=== PATIENT | female | born 1945 | race Caucasian/White ===

== ENCOUNTER 2017-08-19 13:59 | Observation (INO) | payer MEDICARE ==
[2017-08-19] MEDS ORDERED: ASPIRIN 81 MG PO STA (14:31)
[2017-08-19] MEDS ORDERED: NITROGLYCERIN OINT 1 INCH/GM PACKET TOPICAL STA (14:31)
--- NOTE | 2017-08-19 14:34 | ED ---
General Adult HPI - General Chief complaint: Chest Pain Stated complaint: chest & back pain Time Seen by Provider: 08/19/17 14:00 Source: patient, RN notes reviewed Mode of arrival: wheelchair Limitations: no limitations - History of Present Illness Initial comments: 72-year-old female who presents to the emergency department with a past medical history significant for diabetes high blood pressure and high cholesterol. Patient states she quit smoking a couple decades ago. Patient comes in today because she started having chest pain which radiated across her back. Patient states she was also short of breath. Patient states she was just sitting down having lunch when this occurred. Patient states she still feels mildly short of breath with the back pain continuing. Patient denies any diaphoresis. Patient denies any nausea vomiting per patient denies any abdominal pain. Patient denies any previous heart history. Patient denies any lightheadedness dizziness or near syncopal episode. Patient denies headache patient denies numbness weakness. Patient denies any recent fever chills or cough. Patient denies any leg swelling or calf pain. Patient denies any recent new activity such as any heavy lifting moving or exercising. Patient states it does seem to hurt more when she moves on occasion but in other instances it does not affect. - Related Data Home Medications Medication Instructions Recorded Confirmed Atorvastatin [Lipitor] 10 mg PO DAILY 08/19/17 08/19/17 Cholecalciferol [Vitamin D3] 1,000 unit PO DAILY 08/19/17 08/19/17 Cyanocobalamin (Vitamin B-12) 5,000 mcg PO DAILY 08/19/17 08/19/17 [Vitamin B12] DULoxetine HCL [Cymbalta] 30 mg PO DAILY 08/19/17 08/19/17 Divalproex Sodium [Depakote] 125 mg PO BID 08/19/17 08/19/17 Donepezil [Aricept] 10 mg PO HS 08/19/17 08/19/17 Lisinopril [Zestril] 10 mg PO DAILY 08/19/17 08/19/17 Magnesium Oxide [Mag-Ox] 400 mg PO BID 08/19/17 08/19/17 Metoprolol Succinate (ER) [Toprol 100 mg PO DAILY 08/19/17 08/19/17 Xl] NIFEdipine [NIFEdipine ER] 30 mg PO DAILY 08/19/17 08/19/17 Propranolol [Inderal] 20 mg PO BID 08/19/17 08/19/17 Spironolactone [Aldactone] 25 mg PO DAILY 08/19/17 08/19/17 metFORMIN HCL [Glucophage] 500 mg PO DAILY 08/19/17 08/19/17 Allergies Allergy/AdvReac Type Severity Reaction Status Date / Time bee venom protein (honey bee) Allergy Swelling Verified 08/19/17 14:16 iodine Allergy Rash/Hives Verified 08/19/17 14:16 Review of Systems ROS Statement: Those systems with pertinent positive or pertinent negative responses have been documented in the HPI. ROS Other: All systems not noted in ROS Statement are negative. Past Medical History Past Medical History: Dementia, Diabetes Mellitus History of Any Multi-Drug Resistant Organisms: None Reported Past Surgical History: Hysterectomy, Orthopedic Surgery Additional Past Surgical History / Comment(s): left ankle surgery Past Psychological History: No Psychological Hx Reported Smoking Status: Former smoker Past Alcohol Use History: Occasional Past Drug Use History: None Reported General Exam - General Exam Comments Initial Comments: GENERAL: Patient is well-developed and well-nourished. Patient is nontoxic and well- hydrated and is in mild distress. ENT: Neck is soft and supple. No significant lymphadenopathy is noted. Oropharynx is clear. Moist mucous membranes. Neck has full range of motion without eliciting any pain. EYES: The sclera were anicteric and conjunctiva were pink and moist. Extraocular movements were intact and pupils were equal round and reactive to light. Eyelids were unremarkable. PULMONARY: Unlabored respirations. Good breath sounds bilaterally. No audible rales rhonchi or wheezing was noted. CARDIOVASCULAR: There is a regular rate and rhythm without any murmurs gallops or rubs. ABDOMEN: Soft and nontender with normal bowel sounds. No palpable organomegaly was noted. There is no palpable pulsatile mass. SKIN: Skin is clear with no lesions or rashes and otherwise unremarkable. NEUROLOGIC: Patient is alert and oriented x3. Cranial nerves II through XII are grossly intact. Motor and sensory are also intact. Normal speech, volume and content. Symmetrical smile. MUSCULOSKELETAL: Normal extremities with adequate strength and full range of motion. No lower extremity swelling or edema. No calf tenderness. LYMPHATICS: No significant lymphadenopathy is noted PSYCHIATRIC: Normal psychiatric evaluation. Normal interpersonal interactions appears functionally intact in deals appropriately with others. No signs of depression. No signs of anxiety. Limitations: no limitations Course Vital Signs 08/19/17 08/19/17 14:00 15:49 Temperature 97.6 F Pulse Rate 51 L 53 L Respiratory 18 18 Rate Blood Pressure 143/61 143/70 O2 Sat by Pulse 98 98 Oximetry Medical Decision Making - Medical Decision Making EKG shows sinus bradycardia 52 bpm [place] interval 224 QRS is 84 Q-T intervals 452 QTC is 420. Patient's EKG shows no acute abnormality. Chest x-ray shows no acute abnormality. Patient was chest pain-free so I started the patient on heparin because the unstable angina I admitted the patient I talked to Dr. Nathan I wrote admitting orders and continue the heparin and aspirin and Nitropaste on the floor - Lab Data Result diagrams: 08/19/17 14:22 08/19/17 14:22 Lab Results 08/19/17 08/19/17 08/19/17 Range/Units 14:22 14:22 14:22 WBC 7.4 (3.8-10.6) k/uL RBC 4.27 (3.80-5.40) m/uL Hgb 14.1 (11.4-16.0) gm/dL Hct 40.1 (34.0-46.0) % MCV 93.9 (80.0-100.0) fL MCH 33.0 (25.0-35.0) pg MCHC 35.2 (31.0-37.0) g/dL RDW 13.1 (11.5-15.5) % Plt Count 316 (150-450) k/uL Neutrophils % 61 % Lymphocytes % 29 % Monocytes % 5 % Eosinophils % 2 % Basophils % 1 % Neutrophils # 4.5 (1.3-7.7) k/uL Lymphocytes # 2.2 (1.0-4.8) k/uL Monocytes # 0.4 (0-1.0) k/uL Eosinophils # 0.2 (0-0.7) k/uL Basophils # 0.1 (0-0.2) k/uL PT (9.0-12.0) sec INR (<1.2) APTT (22.0-30.0) sec Sodium 138 (137-145) mmol/L Potassium 4.2 (3.5-5.1) mmol/L Chloride 96 L (98-107) mmol/L Carbon Dioxide 27 (22-30) mmol/L Anion Gap 15 mmol/L BUN 11 (7-17) mg/dL Creatinine 0.66 (0.52-1.04) mg/dL Est GFR (CKD-EPI)AfAm >90 (>60 ml/min/1.73 sqM) Est GFR (CKD-EPI)NonAf 89 (>60 ml/min/1.73 sqM) Glucose 231 H (74-99) mg/dL Calcium 9.6 (8.4-10.2) mg/dL Magnesium 1.7 (1.6-2.3) mg/dL Total Bilirubin 0.8 (0.2-1.3) mg/dL AST 27 (14-36) U/L ALT 35 (9-52) U/L Alkaline Phosphatase 72 (38-126) U/L Total Creatine Kinase 34 (30-135) U/L CK-MB (CK-2) 0.9 (0.0-2.4) ng/mL CK-MB (CK-2) Rel Index 2.6 Troponin I <0.012 (0.000-0.034) ng/mL Total Protein 6.6 (6.3-8.2) g/dL Albumin 4.2 (3.5-5.0) g/dL 08/19/17 Range/Units 14:22 WBC (3.8-10.6) k/uL RBC (3.80-5.40) m/uL Hgb (11.4-16.0) gm/dL Hct (34.0-46.0) % MCV (80.0-100.0) fL MCH (25.0-35.0) pg MCHC (31.0-37.0) g/dL RDW (11.5-15.5) % Plt Count (150-450) k/uL Neutrophils % % Lymphocytes % % Monocytes % % Eosinophils % % Basophils % % Neutrophils # (1.3-7.7) k/uL Lymphocytes # (1.0-4.8) k/uL Monocytes # (0-1.0) k/uL Eosinophils # (0-0.7) k/uL Basophils # (0-0.2) k/uL PT 10.2 (9.0-12.0) sec INR 1.0 (<1.2) APTT 23.0 (22.0-30.0) sec Sodium (137-145) mmol/L Potassium (3.5-5.1) mmol/L Chloride (98-107) mmol/L Carbon Dioxide (22-30) mmol/L Anion Gap mmol/L BUN (7-17) mg/dL Creatinine (0.52-1.04) mg/dL Est GFR (CKD-EPI)AfAm (>60 ml/min/1.73 sqM) Est GFR (CKD-EPI)NonAf (>60 ml/min/1.73 sqM) Glucose (74-99) mg/dL Calcium (8.4-10.2) mg/dL Magnesium (1.6-2.3) mg/dL Total Bilirubin (0.2-1.3) mg/dL AST (14-36) U/L ALT (9-52) U/L Alkaline Phosphatase (38-126) U/L Total Creatine Kinase (30-135) U/L CK-MB (CK-2) (0.0-2.4) ng/mL CK-MB (CK-2) Rel Index Troponin I (0.000-0.034) ng/mL Total Protein (6.3-8.2) g/dL Albumin (3.5-5.0) g/dL Critical Care Time Critical Care Time: Yes Total Critical Care Time: 35 Disposition Clinical Impression: Unstable angina pectoris Disposition: ADMITTED IP TO THIS [facility] Referrals: Kianna Mchugh MD [Primary Care Provider] - 1-2 days Time of Disposition: 16:30
[2017-08-19 15:30] LABS: Basophils # (A) 0.1 k/uL (0-0.2); Basophils % (A) 1 %; Eosinophils # (A) 0.2 k/uL (0-0.7); Eosinophils % (A) 2 %; HCT 40.1 % (34.0-46.0); HGB 14.1 gm/dL (11.4-16.0); Lymphocytes # (A) 2.2 k/uL (1.0-4.8); Lymphocytes % (A) 29 %; MCHC 35.2 g/dL (31.0-37.0); MCV 93.9 fL (80.0-100.0); Mean Platelet Volume 7.1; Monocytes # (A) 0.4 k/uL (0-1.0); Monocytes % (A) 5 %; Neutrophils # (A) 4.5 k/uL (1.3-7.7); Neutrophils % (A) 61 %; Platelet Count 316 k/uL (150-450); RBC 4.27 m/uL (3.80-5.40); RDW 13.1 % (11.5-15.5); WBC 7.4 k/uL (3.8-10.6)
--- NOTE | 2017-08-19 15:34 | XR ---
EXAMINATION TYPE: XR chest 2V DATE OF EXAM: 08/19/2017 COMPARISON: NONE HISTORY: Chest pain TECHNIQUE: Frontal and lateral views of the chest are obtained. FINDINGS: Patient is rotated. There is no focal air space opacity, pleural effusion, or pneumothorax seen. The cardiac silhouette size is within normal limits. The osseous structures are intact. The re are overlying cardiac leads. Arthropathy noted at the acromioclavicular joints. IMPRESSION: No acute cardiopulmonary process.
[2017-08-19 15:38] LABS: ALT 35 U/L (9-52); AST 27 U/L (14-36); Albumin 4.2 g/dL (3.5-5.0); Alkaline Phosphatase 72 U/L (38-126); Anion Gap 15 mmol/L; Blood Urea Nitrogen 11 mg/dL (7-17); Calcium 9.6 mg/dL (8.4-10.2); Carbon Dioxide 27 mmol/L (22-30); Chloride 96 mmol/L (98-107); Glucose 231 mg/dL (74-99); Magnesium 1.7 mg/dL (1.6-2.3); Potassium 4.2 mmol/L (3.5-5.1); Prothrombin Time 10.2 sec (9.0-12.0); Sodium 138 mmol/L (137-145); Total Bilirubin 0.8 mg/dL (0.2-1.3); Total Protein 6.6 g/dL (6.3-8.2)
[2017-08-19 15:52] LABS: Creatine Kinase 34 U/L (30-135)
[2017-08-19 16:04] LABS: Creatine Kinase MB 0.9 ng/mL (0.0-2.4); Troponin I <0.012 ng/mL (0.000-0.034)
[2017-08-19] MEDS ORDERED: HEPARIN SODIUM,PORCINE 5,000 UNIT/ML 1 ML VIAL IV ONE (16:27)
[2017-08-19] MEDS ORDERED: HEPARIN SOD,PORK IN 0.45% NACL 25,000 UNIT in 0.45% NACL 1 500ML.BAG IV SCH (16:30)
[2017-08-19] MEDS ORDERED: NITROGLYCERIN SL TABS 0.4 MG TAB SUBLINGUAL PRN (16:31)
[2017-08-19] MEDS ORDERED: MORPHINE SULFATE 2 MG/ML SYRINGE IVP STA (16:57)
[2017-08-19] MEDS ORDERED: HYDROcodone/APAP 5-325MG 1 EACH TAB PO PRN (18:18)
[2017-08-19] MEDS ORDERED: NALOXONE 0.4 MG/ML 1 ML VIAL IV PRN (18:18)
[2017-08-19] MEDS ORDERED: ACETAMINOPHEN TAB 325 MG TAB PO PRN (18:18)
[2017-08-19] MEDS ORDERED: MORPHINE SULFATE 2 MG/ML SYRINGE IV PRN (18:18)
--- NOTE | 2017-08-19 18:30 | P.HPIM ---
History of Present Illness H&P Date: 08/19/17 Chief Complaint: Chest pain 72-year-old female with history of diabetes, hypertension and hyperlipidemia who presents to the emergency department with chest pain located on the left side of the chest. Pain feels like a pressure sensation. It is associated with shortness of breath. Patient states she was just sitting down having lunch when this occurred. When I saw her she continued to have chest pain despite having a Nitro patch on. She never had this type of pain in the past. No diaphoresis, dizziness, nausea, vomiting, no abdominal pain. Patient denies any previous heart history. No numbness or weakness. Patient denies any recent fever chills or cough. Patient denies any leg swelling or calf pain. Patient denies any recent new activity such as any heavy lifting moving or exercising. Review of Systems 12 point review of system performed, negative except HPI Past Medical History Past Medical History: Dementia, Diabetes Mellitus, Hyperlipidemia, Hypertension Additional Past Medical History / Comment(s): "headaches" History of Any Multi-Drug Resistant Organisms: None Reported Past Surgical History: Cholecystectomy, Hysterectomy, Orthopedic Surgery, Tonsillectomy Additional Past Surgical History / Comment(s): left ankle surgery, colonoscopy Past Anesthesia/Blood Transfusion Reactions: No Reported Reaction Smoking Status: Former smoker - Past Family History Mother History Unknown: Yes Father Family Medical History: Myocardial Infarction ([place]) Medications and Allergies Home Medications Medication Instructions Recorded Confirmed Type Atorvastatin [Lipitor] 10 mg PO DAILY 08/19/17 08/19/17 History Cholecalciferol [Vitamin D3] 1,000 unit PO DAILY 08/19/17 08/19/17 History Cyanocobalamin (Vitamin B-12) 5,000 mcg PO DAILY 08/19/17 08/19/17 History [Vitamin B12] DULoxetine HCL [Cymbalta] 30 mg PO DAILY 08/19/17 08/19/17 History Divalproex Sodium [Depakote] 125 mg PO BID 08/19/17 08/19/17 History Donepezil [Aricept] 10 mg PO HS 08/19/17 08/19/17 History Lisinopril [Zestril] 10 mg PO DAILY 08/19/17 08/19/17 History Magnesium Oxide [Mag-Ox] 400 mg PO BID 08/19/17 08/19/17 History Metoprolol Succinate (ER) [Toprol 100 mg PO DAILY 08/19/17 08/19/17 History Xl] NIFEdipine [NIFEdipine ER] 30 mg PO DAILY 08/19/17 08/19/17 History Propranolol [Inderal] 20 mg PO BID 08/19/17 08/19/17 History Spironolactone [Aldactone] 25 mg PO DAILY 08/19/17 08/19/17 History metFORMIN HCL [Glucophage] 500 mg PO DAILY 08/19/17 08/19/17 History Allergies Allergy/AdvReac Type Severity Reaction Status Date / Time bee venom protein (honey bee) Allergy Swelling Verified 08/19/17 14:16 iodine Allergy Rash/Hives Verified 08/19/17 14:16 Physical Exam Vitals: Vital Signs Temp Pulse Resp BP Pulse Ox 08/19/17 17:00 59 L 18 120/66 99 08/19/17 15:49 53 L 18 143/70 98 08/19/17 14:00 97.6 F 51 L 18 143/61 98 Intake and Output 08/19/17 08/19/17 08/19/17 06:59 14:59 22:59 Other: Weight 66.224 kg Constitutional: No acute distress, conversant, pleasant Eyes:Anicteric sclerae, moist conjunctiva, no lid-lag, PERRLA, ENMT: Oropharynx clear, no erythema, exudates Neck: Supple, FROM, no masses, or JVD, No carotid bruits, No thyromegaly Lungs: Clear to auscultation, Clear to percussion, Normal respiratory effort, no accessory muscle use Cardiovascular: Heart regular in rate and rhythm, No murmurs, gallops, or rubs, No peripheral edema Abdominal: Soft, Nontender, no guarding, rebound or rigidity, Normoactive bowel sounds, No hepatomegaly, No splenomegaly, No palpable mass Skin: Normal temperature, tone, texture, turgor, no induration, No subcutaneous nodules, No rash, lesions, No ulcers Extremities: No digital cyanosis, No clubbing, Pedal pulses intact and symmetrical, Radial pulses intact and symmetrical, No calf tenderness Psychiatric: Alert and oriented to person, place and time, appropriate affect, intact judgement Neuro: Muscles Strength 5/5 in all 4 extremities, Sensation to light touch grossly present throughout, Cranial nerves II-XII grossly intact, no focal sensory deficits Results CBC & Chem 7: 08/19/17 14:22 08/19/17 14:22 Labs: Abnormal Lab Results - Last 24 Hours (Table) 08/19/17 Range/Units 14:22 Chloride 96 L (98-107) mmol/L Glucose 231 H (74-99) mg/dL Assessment and Plan Plan: Chest pain Could be secondary to unstable angina Admit to observation Telemetry Cycle troponins, check lipid panel Heparin drip, aspirin Cardiology consult Echocardiogram Stress test, hold beta cayden for now Diabetes type 2 Hold metformin Sliding scale insulin with blood sugar checks every before meals and at bedtime Check HbA1c Hypertension, essential/hyperlipidemia Stable Resume home meds Anticipated length of stay: 1-2 days Disposition: Likely home
[2017-08-19] MEDS: NITROGLYCERIN OINT 1 INCH/GM PACKET TOPICAL SCH (18:57)
[2017-08-19] MEDS ORDERED: DONEPEZIL 10 MG TAB PO SCH (21:00)
[2017-08-19] MEDS ORDERED: PROPRANOLOL 20 MG TAB PO SCH (21:00)
[2017-08-19 21:19] LABS: Glucose,Whole Blood 164 mg/dL (75-99)
[2017-08-19 21:43] LABS: Creatine Kinase 30 U/L (30-135)
[2017-08-19 21:56] LABS: Troponin I <0.012 ng/mL (0.000-0.034)
[2017-08-19] MEDS: INSULIN ASPART 100 UNIT/ML 1 ML 10 ML VIAL SQ SCH (22:42)
[2017-08-19] MEDS: MAGNESIUM OXIDE 400 MG TAB PO SCH (22:43)
[2017-08-19] MEDS: DIVALPROEX SPRINKLE 125 MG CAP.SPRINK PO SCH (22:43)
[2017-08-19 23:47] VITALS: RESP 18
[2017-08-20] MEDS: NITROGLYCERIN OINT 1 INCH/GM PACKET TOPICAL SCH ×3 (00:49→13:03)
[2017-08-20 01:53] LABS: Creatine Kinase 30 U/L (30-135)
[2017-08-20 02:07] LABS: Creatine Kinase MB 0.9 ng/mL (0.0-2.4); Troponin I <0.012 ng/mL (0.000-0.034)
[2017-08-20] MEDS ORDERED: AMINOPHYLLINE 500 MG/20 ML VIAL IV PRN (05:00)
[2017-08-20] MEDS ORDERED: REGADENOSON 0.4 MG/5 ML SYRINGE IV ONE (05:00)
[2017-08-20 06:59] LABS: Glucose,Whole Blood 167 mg/dL (75-99)
--- NOTE | 2017-08-20 07:33 | CONS ---
CONSULTATION Joanna Marquis is a patient who has most of her health care in the [facility]. The patient and her live in [place], [place]. Her brought the patient in because apparently while they were having lunch yesterday she complained of some pressure across the chest. The patient has dementia and short-term memory, but she looked uncomfortable and complained of discomfort in the chest, had some diaphoresis and brought her into the hospital. After arrival, she did not have any discomfort. She complained of some upper back discomfort, which seems to have improved. Her troponins are normal. Three 3 sets of troponins are unremarkable and I was able to get this information from the lab, although there is no printed report. The patient has history of type 2 diabetes, hypertension, takes oral agents. She is comfortable at the time of my evaluation and indicates to me there is some upper back discomfort, but feels a lot better. Pain seems musculoskeletal. She is resting comfortably without symptoms. PAST MEDICAL HISTORY: 1. Type 2 diabetes. 2. Hypertension. 3. Dementia. 4. Status post cholecystectomy and hysterectomy. PHYSICAL EXAMINATION: On examination, blood pressure is 130/70, pulse rate is about 68 per minute and regular. HEENT: Unremarkable. Fundus was not examined by me. Neck is supple. There is no JVD. I do not hear a carotid bruit. There is no thyromegaly. Heart exam reveals S1, S2 heard normally. There is a short systolic murmur at the base, which is a very low intensity murmur. Lungs are clear. Abdomen is soft, nontender. Lower extremities reveal palpable pulses. No edema. Central nervous system is normal. EKG revealed sinus mechanism with evidence of nondiagnostic inferior Q-waves and nonspecific ST-T changes. LABORATORY DATA: Laboratory data suggests the 3 sets of troponins are normal. Her hemoglobin, white count and platelet count are normal. Renal function is also within normal limits. Three sets of troponins are unremarkable. IMPRESSION: 1. Chest pain syndrome cannot exclude angina in a patient with significant risk factors. Three sets of troponins are normal. 2. Type 2 diabetes. 3. Hypertension. 4. Dementia. 5. Status post cholecystectomy, hysterectomy, and ankle surgery. RECOMMENDATIONS: I am recommending a Lexiscan stress test and echocardiogram. Based on these findings, we will make further recommendations. Thank you very much for the consult. MMODL / IJN: [id number] /
[2017-08-20 08:34] LABS: Basophils % (A) 0 %; Eosinophils # (A) 0.2 k/uL (0-0.7); Eosinophils % (A) 3 %; HCT 36.5 % (34.0-46.0); HGB 12.7 gm/dL (11.4-16.0); Lymphocytes # (A) 2.4 k/uL (1.0-4.8); Lymphocytes % (A) 32 %; MCH 32.2 pg (25.0-35.0); MCHC 34.8 g/dL (31.0-37.0); MCV 92.7 fL (80.0-100.0); Mean Platelet Volume 7.3; Monocytes # (A) 0.5 k/uL (0-1.0); Monocytes % (A) 6 %; Neutrophils # (A) 4.4 k/uL (1.3-7.7); Neutrophils % (A) 57 %; Platelet Count 275 k/uL (150-450); RBC 3.93 m/uL (3.80-5.40); RDW 12.6 % (11.5-15.5); WBC 7.7 k/uL (3.8-10.6)
[2017-08-20] MEDS ORDERED: CHOLECALCIFEROL 1,000 UNIT TAB PO SCH (09:00)
[2017-08-20] MEDS ORDERED: ATORVASTATIN 10 MG TAB PO SCH (09:00)
[2017-08-20] MEDS ORDERED: LISINOPRIL 10 MG TAB PO SCH (09:00)
[2017-08-20] MEDS ORDERED: DULoxetine HCL 30 MG CAPSULE.DR PO SCH (09:00)
[2017-08-20] MEDS ORDERED: NIFEdipine XL 30 MG TAB.ER.24 PO SCH (09:00)
[2017-08-20] MEDS ORDERED: ASPIRIN 325 MG TAB PO SCH (09:00)
[2017-08-20] MEDS ORDERED: SPIRONOLACTONE 25 MG TAB PO SCH (09:00)
[2017-08-20 09:14] LABS: Anion Gap 14 mmol/L; Calcium 8.6 mg/dL (8.4-10.2); Carbon Dioxide 25 mmol/L (22-30); Chloride 101 mmol/L (98-107); Cholesterol 140 mg/dL (<200); Glucose 129 mg/dL (74-99); HDL Cholesterol 40 mg/dL (40-60); LDL Cholesterol,Calculated 25 mg/dL (0-99); Sodium 140 mmol/L (137-145); Triglycerides 377 mg/dL (<150)
[2017-08-20] MEDS: DIVALPROEX SPRINKLE 125 MG CAP.SPRINK PO SCH (10:51)
[2017-08-20] MEDS: INSULIN ASPART 100 UNIT/ML 1 ML 10 ML VIAL SQ SCH ×2 (10:51→13:04)
[2017-08-20] MEDS: MAGNESIUM OXIDE 400 MG TAB PO SCH (10:52)
--- NOTE | 2017-08-20 11:05 | ECHOF ---
Referral Reason:CP MEASUREMENTS -------- HEIGHT: 162.6 cm WEIGHT: 66.2 kg BP: RVIDd: 2.5 cm (< 3.3) IVSd: 0.9 cm (0.6 - 1.1) LVIDd: 4.4 cm (3.9 - 5.3) LVPWd: 1.1 cm (0.6 - 1.1) IVSs: 1.4 cm LVIDs: 3.1 cm LVPWs: 1.2 cm LA Diam: 3.2 cm (2.7 - 3.8) LAESV Index (A-L): 21.59 ml/m Ao Diam: 2.5 cm (2.0 - 3.7) AV Cusp: 1.7 cm (1.5 - 2.6) LA Diam: 3.8 cm (2.7 - 3.8) MV EXCURSION: 17.354 mm (> 18.000) MV EF SLOPE: 115 mm/s (70 - 150) EPSS: 0.3 cm MV E Law: 0.59 m/s MV DecT: 270 ms MV A Law: 0.84 m/s MV E/A Ratio: 0.70 AR PHT: 749 ms RAP: 5.00 mmHg RVSP: 22.61 mmHg FINDINGS -------- Sinus rhythm. This was a technically adequate study. The left ventricular size is normal. There is borderline concentric left ventricular hypertrophy. Overall left ventricular systolic function is normal with, an EF between 55 - 60 %. The right ventricle is normal in size. The left atrial size is normal. The right atrial size is normal. There is mild aortic regurgitation. Mild mitral annular calcification present. Mild mitral regurgitation is present. Mild tricuspid regurgitation present. There is no evidence of pulmonary hypertension. The right v entricular systolic pressure, as measured by Doppler, is 22.61mmHg. There is no pulmonic regurgitation present. The aortic root size is normal. There is no pericardial effusion. CONCLUSIONS -------- 1. The left ventricular size is normal. 2. There is borderline concentric left ventricular hypertrophy. 3. The right ventricle is normal in size. 4. The left atrial size is normal. 5. The right atrial size is normal. 6. There is mild aortic regurgitation. 7. Mild mitral annular calcification present. 8. Mild mitral regurgitation is present. 9. Mild tricuspid regurgitation present. 10. There is no evidence of pulmonary hypertension. 11. The right ventricular systolic pressure, as measured by Doppler, is 22.61mmHg. 12. There is no pulmonic regurgitation present. 13. The aortic root size is normal. 14. There is no pericardial effusion. [employer] FIELD COACH: Jessica Thomason RDCS
[2017-08-20 11:37] VITALS: BP 132/58; PULSE 54; TEMP 98.6
--- NOTE | 2017-08-20 11:51 | EST ---
EXERCISE STRESS AGE: 72 SEX: F HT: 63" WT: 146 PROTOCOL: Lexiscan Cardiolite Stress Test HEART RATE REST: 56 BLOOD PRESSURE REST: 123/62 MAXIMUM HEART RATE ACHIEVED: 67 MAXIMUM BLOOD PRESSURE: 124/68 INDICATIONS: Chest pain. CLINICAL INFORMATION: Baseline EKG revealed normal sinus rhythm without significant ST-T changes. There were minor nonspecific changes. Patient was administered Lexiscan as per protocol and heart rate changed from 56 to 67 beats per minute and blood pressure changed from 123/62 to 124/68. EKG did not reveal any significant ST-segment changes to indicate ischemia. Nonspecific changes that were seen to begin with persisted. By EKG criteria, this is considered as a inconclusive stress test because of minor resting EKG changes to begin with. These changes became more prominent in the inferolateral leads, but these are still considered as inconclusive findings. The patient did not have any clear-cut angina but complained of some upper back discomfort. By EKG criteria, this is an inconclusive Lexiscan stress test because of minor resting EKG changes. The nuclear scan results which are more pertinent, will be reported by the radiologist. MMODL / IJN: [id number] /
--- NOTE | 2017-08-20 12:14 | NM ---
EXAMINATION TYPE: NM stress lexiscan cardiolite DATE OF EXAM: 08/20/2017 COMPARISON: NONE HISTORY: Chest pain TECHNIQUE: After the intravenous administration of 10.3 mCi Tc 99m Sestamibi - Cardiolite resting SP ECT images acquired 60 minutes post injection. The patient received 0.4mg Lexiscan, 26.8 mCi Tc 99m Sestamibi - Stress images obtained [address] injection FINDINGS: Review of stress and rest SPECT images demonstrates no distinct perfusion abnormality. Gut activity is noted. Gated analysis shows questionable apical paradoxical wall motion with an estimated left chriss tricular ejection fraction of 61 %. IMPRESSION: No scintigraphic evidence for reversible ischemia. Consider correlation with echocardiographic study.
[2017-08-20 12:26] LABS: Glucose,Whole Blood 171 mg/dL (75-99)
[2017-08-20 14:48] LABS: Blood Urea Nitrogen 14 mg/dL (7-17)
[2017-08-20 14:49] LABS: Magnesium 1.6 mg/dL (1.6-2.3); Phosphorus 4.3 mg/dL (2.5-4.5)
--- NOTE | 2017-08-20 15:59 | P.DS ---
Providers Date of admission: 08/19/17 16:39 Expected date of discharge: 08/20/17 Attending physician: Viky Owen MD Consults: 08/19/17 16:31 Consult Physician Urgent Consulting Provider: [facility] Consult Reason/Comments: Unstable angina Do you want consulting provider notified?: Yes Primary care physician: [facility] Course: 72-year-old female with history of diabetes, hypertension and hyperlipidemia who presents to the emergency department with chest pain located on the left side of the chest. Pain feels like a pressure sensation. It is associated with shortness of breath. Patient states she was just sitting down having lunch when this occurred. When I saw her she continued to have chest pain despite having a Nitro patch on. She never had this type of pain in the past. No diaphoresis, dizziness, nausea, vomiting, no abdominal pain. Patient denies any previous heart history. No numbness or weakness. Patient denies any recent fever chills or cough. Patient denies any leg swelling or calf pain. Patient denies any recent new activity such as any heavy lifting moving or exercising. In the emergency department patient was hemodynamically stable. Because of persistent chest pain she was started on heparin and admitted subsequently to the hospital for further evaluation and management. EKG on admission was done and that was negative for any acute process. Troponins were cycled and they stayed within normal limits. The next day patient had an echocardiogram which showed a normal EF and no significant valvular abnormalities, she also had a Lexiscan that was negative for ischemia. Currently chest pain is resolved. Patient will be discharged home in a stable condition. Discharged diagnoses: Atypical chest pain, no cad. Plan - Discharge Summary Discharge Rx Participant: No New Discharge Prescriptions: Continue Propranolol [Inderal] 20 mg PO BID Magnesium Oxide [Mag-Ox] 400 mg PO BID Donepezil [Aricept] 10 mg PO HS Divalproex Sodium [Depakote] 125 mg PO BID metFORMIN HCL [Glucophage] 500 mg PO DAILY Spironolactone [Aldactone] 25 mg PO DAILY NIFEdipine [NIFEdipine ER] 30 mg PO DAILY Metoprolol Succinate (ER) [Toprol XL] 100 mg PO DAILY Cyanocobalamin (Vitamin B-12) [Vitamin B12] 5,000 mcg PO DAILY Cholecalciferol [Vitamin D3] 1,000 unit PO DAILY Lisinopril [Zestril] 10 mg PO DAILY DULoxetine HCL [Cymbalta] 30 mg PO DAILY Atorvastatin [Lipitor] 10 mg PO DAILY Discharge Medication List Atorvastatin [Lipitor] 10 mg PO DAILY 08/19/17 [History] Cholecalciferol [Vitamin D3] 1,000 unit PO DAILY 08/19/17 [History] Cyanocobalamin (Vitamin B-12) [Vitamin B12] 5,000 mcg PO DAILY 08/19/17 [History ] DULoxetine HCL [Cymbalta] 30 mg PO DAILY 08/19/17 [History] Divalproex Sodium [Depakote] 125 mg PO BID 08/19/17 [History] Donepezil [Aricept] 10 mg PO HS 08/19/17 [History] Lisinopril [Zestril] 10 mg PO DAILY 08/19/17 [History] Magnesium Oxide [Mag-Ox] 400 mg PO BID 08/19/17 [History] Metoprolol Succinate (ER) [Toprol XL] 100 mg PO DAILY 08/19/17 [History] NIFEdipine [NIFEdipine ER] 30 mg PO DAILY 08/19/17 [History] Propranolol [Inderal] 20 mg PO BID 08/19/17 [History] Spironolactone [Aldactone] 25 mg PO DAILY 08/19/17 [History] metFORMIN HCL [Glucophage] 500 mg PO DAILY 08/19/17 [History] Follow up Appointment(s)/Referral(s): Kianna Mchugh MD [Primary Care Provider] - 1-2 days Jaylen Velasco MD [STAFF PHYSICIAN] - 2 Weeks Discharge Disposition: HOME SELF-CARE
[2017-08-20 17:57] LABS: Hemoglobin A1C 6.9 % (4.0-6.0)
== END 2017-08-20 14:04 | disposition home or self-care (01) ==
LOC: EC 13:59 → 3OBS 16:39
PROVIDERS: ADMIT Internal Medicine; ATTEND Internal Medicine
DX: R07.89 Other chest pain (principal); I10 Essential (primary) hypertension; E78.5 Hyperlipidemia, unspecified; E11.9 Type 2 diabetes mellitus without complications; F03.90 Unspecified dementia, unspecified severity, without behavioral disturbance, psychotic disturbance, mood disturbance, and anxiety; Z79.84 Long term (current) use of oral hypoglycemic drugs; Z79.899 Other long term (current) drug therapy; Z91.030 Bee allergy status; Z91.048 Other nonmedicinal substance allergy status; Z87.891 Personal history of nicotine dependence; Z90.49 Acquired absence of other specified parts of digestive tract; Z90.710 Acquired absence of both cervix and uterus; Z82.49 Family history of ischemic heart disease and other diseases of the circulatory system
CPT/HCPCS: 99291 ×2; 96365 ×2; 96366 ×6; 96375 ×2; 96376 ×3; 36415; 93005; 93017; 93306; 80061; 80053; 80048; 82550 ×2; 82553 ×2; 83735 ×2; 84100; 84484 ×2; 85025 ×2; 85610; 85730 ×2; 83036; 71046; 78452; G0378 ×2; A9500; J1644 ×2; J2270; J2785